=== PATIENT | female | born 1980 | race Caucasian/White ===

== ENCOUNTER 2018-07-15 07:28 | Emergency (ER) | payer MEDICAID ==
[2018-07-15 08:06] LABS: URINE BLOOD (Dip) POC 3+ (NEGATIVE); URINE GLUCOSE (Dip) POC Negative (NEGATIVE); URINE KETONES (Dip) POC Negative (NEGATIVE); URINE LEUKOCYTE EST (Dip) POC Negative (NEGATIVE); URINE NITRITE (Dip) POC Negative (NEGATIVE); URINE TOTAL PROTEIN POC Negative (NEGATIVE)
== END 2018-07-15 08:37 | disposition home or self-care (01) ==
LOC: FTE 07:28
DX: R30.0 Dysuria (principal)
CPT/HCPCS: 81003; 81025; 99283